=== PATIENT | male | born 1990 | race Caucasian/White ===

== ENCOUNTER → 2017-08-28 | Emergency (ER) | payer OTHER ==
[~2017-08-28] VITALS: Ht 172.7 cm; Wt 61.2 kg
[~2017-08-28] MED LIST: AMOX1TAB12 PO; KETO10TA2 PO; TUSSI PRES-B L120 M1 PO
== END | disposition home or self-care (01) ==
LOC: ER 20:03
DX: S62.646A Nondisplaced fracture of proximal phalanx of right little finger, initial encounter for closed fracture (principal); S60.051A Contusion of right little finger without damage to nail, initial encounter; W21.02XA Struck by soccer ball, initial encounter; Y93.66 Activity, soccer; Y92.39 Other specified sports and athletic area as the place of occurrence of the external cause; Y99.8 Other external cause status

== ENCOUNTER 2022-07-30 11:42 | Outpatient (CLI) | payer OTHER | END 2022-07-30 11:48 | disposition home or self-care (01) | LOC: RAD 11:42 | PROVIDERS: ATTEND Physical Medicine & Rehabilitation | DX: S69.92XA Unspecified injury of left wrist, hand and finger(s), initial encounter (principal) ==